=== PATIENT | female | born 1990 | race Caucasian/White ===

== ENCOUNTER 2022-02-02 09:43 | Outpatient (CLI) | payer BC | END 2022-02-02 09:44 | disposition home or self-care (01) | LOC: CSHRAD 09:43 | PROVIDERS: ATTEND Student in an Organized Health Care Education/Training Program | DX: R13.14 Dysphagia, pharyngoesophageal phase (principal); R63.30 Feeding difficulties, unspecified; M50.20 Other cervical disc displacement, unspecified cervical region | CPT/HCPCS: 74230 ==